=== PATIENT | female | born 1985 | race Caucasian/White ===

== ENCOUNTER 2020-08-12 10:05 | Outpatient (CLI) | payer BC, OTHER ==
[~2020-08-12] VITALS: Ht 152.4 cm; Wt 60.5 kg
[2020-08-12 10:26] VITALS: BP 124/75
[2020-08-12 10:54] LABS: BASOPHILS % (AUTO) 1 % (0-1); EOSINOPHILS % (AUTO) 3 % (1-7); LYMPHOCYTES % (AUTO) 15 % (22-44); MEAN CORPUSCULAR HEMOGLOBIN 31.3 pg (27.0-34.8); MEAN CORPUSCULAR HGB CONC 33.7 g/dL (32.4-35.8); MEAN PLATELET VOLUME 7.6 fL (7.4-10.4); MONOCYTES % (AUTO) 8 % (2-9); NEUTROPHILS % (AUTO) 74 % (42-75); PLATELET COUNT 281 x10^3/uL (130-400); RED BLOOD COUNT 4.21 x10^6/uL (3.82-5.3); RED CELL DISTRIBUTION WIDTH 13.3 % (9.6-15.2)
[2020-08-12 10:56] LABS: MD NO
[2020-08-12 11:04] LABS: ALANINE AMINOTRANSFERASE 28 U/L (12-78); ALBUMIN 2.7 g/dL (3.4-5.0); ANION GAP 7 mmol/L (5-15); CALCIUM 8.8 mg/dL (8.5-10.1); CHLORIDE 107 mmol/L (98-107)
[2020-08-12 11:06] LABS: ALKALINE PHOSPHATASE 127 U/L (45-117); BILIRUBIN,TOTAL 0.2 mg/dL (0.2-1.0); TOTAL PROTEIN 7.1 g/dL (6.4-8.2)
[2020-08-12 11:25] LABS: MICROSCOPIC NOT IND
[2020-08-12 11:39] LABS: CREATININE,URINE RANDOM < 13.00 mg/dL; TOTAL PROTEIN,URINE RANDOM < 5 mg/dL (0-12)
== END 2020-08-12 12:50 | disposition home or self-care (01) ==
LOC: LDOP 10:05
PROVIDERS: ATTEND Obstetrics & Gynecology
DX: O09.93 Supervision of high risk pregnancy, unspecified, third trimester (principal); O16.3 Unspecified maternal hypertension, third trimester; Z3A.28 28 weeks gestation of pregnancy
CPT/HCPCS: 36415; 59025; 80053; 81003; 82570; 83036; 84156; 84550; 85025; 87086

== ENCOUNTER 2020-09-24 10:33 | Outpatient (CLI) | payer BC ==
[~2020-09-24] VITALS: Ht 152.4 cm; Wt 63.6 kg
[2020-09-24 11:39] LABS: MICROSCOPIC NOT IND
== END 2020-09-24 12:29 | disposition home or self-care (01) ==
LOC: LDOP 10:33
PROVIDERS: ATTEND Obstetrics & Gynecology
DX: O60.03 Preterm labor without delivery, third trimester (principal); Z3A.33 33 weeks gestation of pregnancy
CPT/HCPCS: 59025; 81003; 87086

== ENCOUNTER 2020-10-02 11:30 | Outpatient (CLI) | payer BC ==
[~2020-10-02] VITALS: Ht 152.4 cm; Wt 64.1 kg
[2020-10-02 11:32] VITALS: BP 132/85
[2020-10-02] MEDS ORDERED: BETAMETHASONE 6 MG/ML, 5ML IM ONE ×2 (11:38→12:00)
== END 2020-10-02 14:10 | disposition home or self-care (01) ==
LOC: LDOP 11:30
PROVIDERS: ATTEND Obstetrics & Gynecology
DX: O60.03 Preterm labor without delivery, third trimester (principal); Z3A.33 33 weeks gestation of pregnancy
CPT/HCPCS: 59025; 76819; 96372; J0702

== ENCOUNTER 2020-10-03 11:24 | Outpatient (CLI) | payer BC ==
[~2020-10-03] VITALS: Ht 152.4 cm; Wt 64.1 kg
[2020-10-03] MEDS ORDERED: BETAMETHASONE 6 MG/ML, 5ML IM ONE (11:30)
[2020-10-03 11:56] VITALS: BP 133/83
== END 2020-10-03 12:12 | disposition home or self-care (01) ==
LOC: LDOP 11:24
PROVIDERS: ATTEND Obstetrics & Gynecology
DX: O60.03 Preterm labor without delivery, third trimester (principal); O16.3 Unspecified maternal hypertension, third trimester; Z3A.33 33 weeks gestation of pregnancy
CPT/HCPCS: 59025; 96372; J0702

== ENCOUNTER 2020-10-16 10:15 | Observation (INO) | payer BC ==
[~2020-10-16] VITALS: Ht 152.4 cm; Wt 65.4 kg
[2020-10-16 11:45] LABS: MICROSCOPIC NOT IND
== END 2020-10-16 14:40 | disposition home or self-care (01) ==
LOC: LDOP 10:15 → L&D 13:24
PROVIDERS: ADMIT Obstetrics & Gynecology; ATTEND Obstetrics & Gynecology
DX: O62.9 Abnormality of forces of labor, unspecified (principal); O12.03 Gestational edema, third trimester; Z3A.37 37 weeks gestation of pregnancy; Z79.899 Other long term (current) drug therapy
CPT/HCPCS: 59025; 76819; 81003; 87086; G0378

== ENCOUNTER 2020-10-21 09:51 | Outpatient (CLI) | payer BC ==
[~2020-10-21] VITALS: Ht 152.4 cm; Wt 65.9 kg
== END 2020-10-21 12:20 | disposition home or self-care (01) ==
LOC: LDOP 09:51
PROVIDERS: ATTEND Obstetrics & Gynecology
DX: O13.3 Gestational [pregnancy-induced] hypertension without significant proteinuria, third trimester (principal); Z3A.37 37 weeks gestation of pregnancy
CPT/HCPCS: 59025; 76819

== ENCOUNTER 2020-10-29 11:44 | Inpatient (IN) | payer BC ==
[~2020-10-29] VITALS: Ht 152.4 cm; Wt 66.3 kg
[2020-10-29] MEDS ORDERED: OXYTOCIN 30U/ 0.9% NaCL 500ML 500 ML ONE (11:50)
[2020-10-29] MEDS ORDERED: METOCLOPRAMIDE 5 MG/ML, 2ML ONE (11:50)
[2020-10-29] MEDS ORDERED: SODIUM CITRATE/CITRIC ACID 15 ML UDC ONE (11:50)
[2020-10-29] MEDS ORDERED: SODIUM CITRATE/CITRIC ACID 30 ML UDC PO ONE (12:00)
[2020-10-29] MEDS ORDERED: METOCLOPRAMIDE 5 MG/ML, 2ML IV ONE (12:00)
[2020-10-29] MEDS ORDERED: LACTATED RINGERS 1,000 ML IVBOLUS ONE (12:00)
[2020-10-29] MEDS ORDERED: LACTATED RINGERS 1,000 ML IV SCH (12:00)
[2020-10-29 12:06] LABS: BASOPHILS % (AUTO) 1 % (0-1); EOSINOPHILS % (AUTO) 3 % (1-7); LYMPHOCYTES % (AUTO) 21 % (22-44); MEAN CORPUSCULAR HEMOGLOBIN 30.7 pg (27.0-34.8); MEAN CORPUSCULAR HGB CONC 33.4 g/dL (32.4-35.8); MONOCYTES % (AUTO) 8 % (2-9); NEUTROPHILS % (AUTO) 68 % (42-75); PLATELET COUNT 336 x10^3/uL (130-400); RED BLOOD COUNT 4.22 x10^6/uL (3.82-5.3); RED CELL DISTRIBUTION WIDTH 13.8 % (9.6-15.2)
[2020-10-29 12:10] LABS: MD NO
[2020-10-29] MEDS ORDERED: D5%-LACTATED RINGERS 1,000 ML IV SCH (13:00)
[2020-10-29] MEDS: LACTATED RINGERS 1,000 ML IV SCH ×2 (16:50→20:00)
[2020-10-29] MEDS ORDERED: morphine SULFATE/PF 0.5 MG/ML, 10ML ONE (16:59)
[2020-10-29] MEDS ORDERED: ONDANSETRON 2MG/ML, 2ML ONE (17:09)
[2020-10-29] MEDS ORDERED: PHENYLEPHRINE 10 MG/ML ONE (17:09)
[2020-10-29] MEDS ORDERED: WATER-INJECTION,STERILE 10 ML IV ONE (17:09)
[2020-10-29] MEDS ORDERED: KETOROLAC 30 MG/1 ML ONE (17:09)
[2020-10-29] MEDS ORDERED: CEFAZOLIN 1,000 MG ONE (17:09)
[2020-10-29] MEDS ORDERED: DEXAMETHASONE 4 MG/ML, 1ML ONE (17:09)
[2020-10-29] MEDS ORDERED: OXYTOCIN 10 UNITS/ML, 1ML ONE (17:09)
[2020-10-29] MEDS ORDERED: OXYcodone IR 5MG TABLET PO PRN (18:30)
[2020-10-29] MEDS ORDERED: ACETAMINOPHEN 325 MG TABLET PO PRN (18:30)
[2020-10-29] MEDS ORDERED: SIMETHICONE 80 MG CHEW TAB PO PRN (18:30)
[2020-10-29] MEDS ORDERED: CARBOPROST TROMETHAMINE 250 MCG/ML, 1ML IM PRN (18:30)
[2020-10-29] MEDS ORDERED: MISOPROSTOL 200 MCG TABLET PR PRN (18:30)
[2020-10-29] MEDS ORDERED: ONDANSETRON 2MG/ML, 2ML IV PRN (18:30)
[2020-10-29] MEDS: OXYcodone/APAP 5/325MG TABLET PO PRN ×2 (20:53→22:39)
[2020-10-29] MEDS: DOCUSATE 100 MG CAPSULE PO PRN (20:53)
[2020-10-29 20:56] VITALS: BP 123/78
[2020-10-29] MEDS: OXYTOCIN 30U/ 0.9% NaCL 500ML 500 ML IV SCH (21:14)
[2020-10-29] MEDS ORDERED: DIPHENHYDRAMINE 50 MG/ML, 1ML IV PRN (21:30)
[2020-10-29] MEDS ORDERED: NO SEDATIVES, TRANQUILIZERS OR ANTIEMETICS XX SCH (21:30)
[2020-10-29] MEDS ORDERED: EPHEDRINE 50 MG/ML, 1ML IVPush PRN (21:30)
[2020-10-29] MEDS ORDERED: morphine SULFATE 10 MG/ML, 1ML IVPush PRN (21:30)
[2020-10-29] MEDS: KETOROLAC 30 MG/1 ML IVPush SCH ×2 (21:30→23:36)
[2020-10-29] MEDS ORDERED: ONDANSETRON 2MG/ML, 2ML IVPush PRN (21:30)
[2020-10-29] MEDS ORDERED: NALOXONE 0.4 MG/ML, 1ML IV PRN (21:30)
[2020-10-29] MEDS ORDERED: LABETALOL 100 MG TABLET ONE (22:35)
[2020-10-29] MEDS: LABETALOL 100 MG TABLET PO SCH (22:39)
[2020-10-29 23:37] VITALS: BP 118/73
[2020-10-30 02:02] LABS: BASOPHILS % (AUTO) 0 % (0-1); EOSINOPHILS % (AUTO) 0 % (1-7); LYMPHOCYTES % (AUTO) 11 % (22-44); MEAN CORPUSCULAR HEMOGLOBIN 30.3 pg (27.0-34.8); MEAN CORPUSCULAR HGB CONC 32.9 g/dL (32.4-35.8); MEAN PLATELET VOLUME 8.2 fL (7.4-10.4); MONOCYTES % (AUTO) 6 % (2-9); NEUTROPHILS % (AUTO) 83 % (42-75); PLATELET COUNT 300 x10^3/uL (130-400); RED BLOOD COUNT 3.89 x10^6/uL (3.82-5.3); RED CELL DISTRIBUTION WIDTH 13.8 % (9.6-15.2)
[2020-10-30 02:20] LABS: MD NO
[2020-10-30] MEDS: LACTATED RINGERS 1,000 ML IV SCH ×4 (02:30→21:55)
[2020-10-30] MEDS: OXYTOCIN 30U/ 0.9% NaCL 500ML 500 ML IV SCH ×2 (04:30→21:55)
[2020-10-30] MEDS: OXYcodone/APAP 5/325MG TABLET PO PRN ×5 (04:46→23:44)
[2020-10-30 04:50] VITALS: BP 110/70
[2020-10-30] MEDS: KETOROLAC 30 MG/1 ML IVPush SCH ×3 (05:42→17:20)
[2020-10-30] MEDS: LABETALOL 100 MG TABLET PO SCH ×2 (07:35→19:46)
[2020-10-30] MEDS: PRENATAL VIT/IRON/FA 1 EACH TABLET PO SCH (07:35)
[2020-10-30] MEDS: DOCUSATE 100 MG CAPSULE PO PRN ×2 (07:35→19:42)
[2020-10-30 07:50] VITALS: BP 109/69
[2020-10-30] MEDS ORDERED: LABETALOL 100 MG TABLET PO SCH (08:00)
[2020-10-30 12:49] VITALS: BP 107/70
[2020-10-30 19:40] VITALS: BP 125/63
[2020-10-30] MEDS: IBUPROFEN 600 MG TABLET PO PRN (23:44)
[2020-10-31] MEDS: OXYTOCIN 30U/ 0.9% NaCL 500ML 500 ML IV SCH (00:30)
[2020-10-31] MEDS: LACTATED RINGERS 1,000 ML IV SCH ×2 (00:30→02:30)
[2020-10-31 01:45] VITALS: BP 105/68
[2020-10-31] MEDS: OXYcodone/APAP 5/325MG TABLET PO PRN ×3 (03:49→12:41)
[2020-10-31] MEDS: IBUPROFEN 600 MG TABLET PO PRN ×2 (06:31→12:41)
[2020-10-31 07:00] VITALS: BP 126/80
[2020-10-31] MEDS: DOCUSATE 100 MG CAPSULE PO PRN (08:10)
[2020-10-31] MEDS: LABETALOL 100 MG TABLET PO SCH (08:11)
[2020-10-31] MEDS: PRENATAL VIT/IRON/FA 1 EACH TABLET PO SCH (08:11)
[2020-10-31] MEDS ORDERED: OXYC1TAB14 PO (10:10)
[2020-10-31] MEDS ORDERED: IBUP-1222 PO (10:10)
[2020-10-31] MEDS ORDERED: DOCU-131 PO (10:11)
== END 2020-10-31 14:05 | disposition home or self-care (01) | DRG 785 ==
LOC: LDIP 11:44 → 2NW 20:05
PROVIDERS: ADMIT Obstetrics & Gynecology; ATTEND Obstetrics & Gynecology
PROC: 10D00Z1 Extraction of Products of Conception, Low, Open Approach (ICD-10-PCS; principal; 2020-10-29)
PROC: 0UB70ZZ Excision of Bilateral Fallopian Tubes, Open Approach (ICD-10-PCS; 2020-10-29)
DX: O16.4 Unspecified maternal hypertension, complicating childbirth (principal); O76 Abnormality in fetal heart rate and rhythm complicating labor and delivery; O99.52 Diseases of the respiratory system complicating childbirth; O34.211 Maternal care for low transverse scar from previous cesarean delivery; J45.909 Unspecified asthma, uncomplicated; Z20.822 Contact with and (suspected) exposure to COVID-19; Z3A.38 38 weeks gestation of pregnancy; Z37.0 Single live birth; Z30.2 Encounter for sterilization; Z86.32 Personal history of gestational diabetes
CPT/HCPCS: 36415; J7121; 85025; 86592; 86850; 86870; 86900; 86902; 86922; 86923; 87635; 88305; G0378; J0690; J1100; J1885; J2274; J2405; J2370; J2590; J2765; J7120